=== PATIENT | female | born 1990 | race Caucasian/White ===

== ENCOUNTER 2019-01-29 14:08 | Outpatient (CLI) | payer OTHER ==
--- NOTE | 2019-01-29 20:49 | ULT ---
THYROID ULTRASOUND: 01/29/2019 HISTORY: Palpable nodule on the left. COMPARISON: None available. TECHNIQUE: Multiplanar bhakta-scale sonographic imaging of the thyroid gland obtained. FINDINGS: The thyroid isthmus measures 5 mm, the right lobe measures 4.1 x 1.9 x 1.7 cm and the left lobe measu res 5.1 x 1.6 x 2.5 cm. There is a nonspecific hypoechoic area near the isthmus measuring 1.5 x 0.4 x 1.2 cm, suggesting a hy poechoic nodule. The thyroid parenchyma is overall heterogeneous throughout both lobes of the thyroid gland. There is a small, hypoechoic nodule within the anterior aspect of the mid left lobe, measurin g approximately 6 x 4 mm. There is a dominant round, circumscribed, hypoechoic cyst associated with the lower aspect of the lef t lobe of the thyroid gland, measuring 3.2 x 3.1 x 2.3 cm. IMPRESSION: TI-RADS category 3 - mildly suspicious. For the solid hypoechoic nodule, measuring up to 1.5 cm, follow-up ultrasound in six months is advise d. Findings include a dominant cyst within the lower aspect of the left lobe of the thyroid gland, me asuring up to 3.2 cm. This could be aspirated with ultrasound guidance if clinically warranted. POS: HUANG
== END 2019-01-29 14:09 | disposition home or self-care (01) ==
LOC: SCSULT 14:08
PROVIDERS: ATTEND Otolaryngology Plastic Surgery within the Head & Neck
DX: D49.7 Neoplasm of unspecified behavior of endocrine glands and other parts of nervous system (principal); E04.1 Nontoxic single thyroid nodule
CPT/HCPCS: 76536